=== PATIENT | male | born 1955 | race African-American/Black ===

== ENCOUNTER 2020-12-14 09:50 | Inpatient (IN) | payer MEDICARE, MEDICAID ==
[~2020-12-14] VITALS: Ht 165.1 cm; Wt 73.9 kg
[2020-12-14] MEDS ORDERED: ALBUTEROL (0.083%) 2.5MG/3ML NEB HHN STA (10:14)
[2020-12-14] MEDS ORDERED: SODIUM CHLORIDE 0.9% 1,000 ML IV ONE (10:15)
[2020-12-14] MEDS ORDERED: DEXAMETHASONE 4MG/ML 1ML VIAL IV ONE (10:15)
[2020-12-14 10:49] LABS: CHLORIDE 107 mEq/L (98-107)
[2020-12-14 11:12] LABS: BASOPHILS % 0.5 % (0.0-2.0); HEMATOCRIT. 38.7 % (42.0-52.0); HEMOGLOBIN. 12.4 g/dL (14.0-18.0); LYMPHOCYTES % 19.7 % (20.0-50.0); MEAN CORPUSCULAR HEMOGLOBIN 30.6 pg (28.0-32.0); MEAN CORPUSCULAR VOLUME 95.6 fL (80.0-94.0); MONOCYTES % 9.5 % (2.0-8.0); NEUTROPHILS % 68.3 % (40.0-76.0); PLATELET 358 x1000/uL (130-400); RED BLOOD CELL COUNT 4.05 mill/uL (4.7-6.1); RED CELL DISTRIBUTION WIDTH 17.1 % (11.6-14.6)
[2020-12-14] MEDS ORDERED: ALBUTEROL (0.083%) 2.5MG/3ML NEB HHN ONE (12:45)
[2020-12-14 17:00] VITALS: BP 148/65
[2020-12-14] MEDS ORDERED: ACETAMINOPHEN 650MG/20.3ML UDC GT PRN ×2 (17:15)
[2020-12-14] MEDS ORDERED: NA PHOS,M-B/NA PHOS,DI-BA ENEMA 118ML PR PRN (17:15)
[2020-12-14] MEDS ORDERED: MAGNESIUM/ALUMINUM HYDROXIDE/SIMETHICONE 30ML UDC PO PRN (17:15)
[2020-12-14] MEDS ORDERED: ACETAMINOPHEN 650MG SUPP PR PRN ×2 (17:15)
[2020-12-14] MEDS ORDERED: ACETAMINOPHEN 325MG TABLET PO PRN ×2 (17:15)
[2020-12-14] MEDS ORDERED: ONDANSETRON HCL 4MG/2ML INJ IV PRN (17:15)
[2020-12-14] MEDS ORDERED: CLONIDINE 0.1MG TABLET PO PRN (17:15)
[2020-12-14] MEDS ORDERED: DEXTROSE 50% WATER 50ML SYRINGE IV PRN (17:30)
[2020-12-14] MEDS: BLOOD SUGAR DIAGNOSTIC STRIP TEST SCH ×2 (17:40→21:00)
[2020-12-14] MEDS: INSULIN LISPRO 100 UNITS/ML SUBCUT SCH ×2 (18:57→21:00)
[2020-12-14 20:00] VITALS: BP 133/75
[2020-12-14] MEDS: SODIUM CHLORIDE 0.45% 1,000 ML IV SCH (20:07)
[2020-12-14] MEDS: FAMOTIDINE 20MG/2ML VIAL IV SCH (20:10)
[2020-12-14] MEDS ORDERED: PROC5TAB55 PO (21:35)
[2020-12-14] MEDS ORDERED: FAMO40TA7 PO (21:35)
[2020-12-14] MEDS ORDERED: ATOR40TA70 PO (21:35)
[2020-12-14] MEDS ORDERED: P50 PO (21:35)
[2020-12-14] MEDS ORDERED: AMLO10TA80 PO (21:35)
[2020-12-15 00:05] VITALS: BP 109/59
[2020-12-15 04:00] VITALS: BP 141/63
[2020-12-15] MEDS: BLOOD SUGAR DIAGNOSTIC STRIP TEST SCH ×2 (05:46→12:40)
[2020-12-15] MEDS: SODIUM CHLORIDE 0.45% 1,000 ML IV SCH (05:46)
[2020-12-15 07:59] LABS: HEMOGLOBIN. 12.9 g/dL (14.0-18.0); MEAN CORPUSCULAR HEMOGLOBIN 30.8 pg (28.0-32.0); MEAN CORPUSCULAR VOLUME 95.7 fL (80.0-94.0); RED BLOOD CELL COUNT 4.19 mill/uL (4.7-6.1)
[2020-12-15 08:00] VITALS: BP 146/77
[2020-12-15] MEDS: INSULIN LISPRO 100 UNITS/ML SUBCUT SCH ×2 (08:10→13:10)
[2020-12-15 08:12] LABS: CHLORIDE 107 mEq/L (98-107)
[2020-12-15 08:24] LABS: LDL CHOLESTEROL 86 mg/dL (5-100)
[2020-12-15 08:25] LABS: HDL CHOLESTEROL 62 mg/dL (40-59)
[2020-12-15 09:32] LABS: MEAN PLATELET VOLUME 7.3 fl (7.4-10.4); PLATELET 352 x1000/uL (130-400); PLATELET ESTIMATE NORMAL
[2020-12-15] MEDS: FAMOTIDINE 20MG/2ML VIAL IV SCH (09:40)
[2020-12-15 12:00] VITALS: BP 146/77
[2020-12-15] MEDS ORDERED: INS NPH/REG HM 70-30 100 UNITS/ML 10ML VIAL (HUMULIN 70-30) SUBCUT SCH (18:30)
== END 2020-12-15 12:20 | disposition home or self-care (01) | DRG 811 ==
LOC: ER 10:29 → 7WST 11:42 → ENRESERV 13:34 → CANRESERV 13:34
PROVIDERS: ADMIT Family Medicine; ATTEND Family Medicine
DX: T88.6XXA Anaphylactic reaction due to adverse effect of correct drug or medicament properly administered, initial encounter (principal); E11.9 Type 2 diabetes mellitus without complications; I10 Essential (primary) hypertension; T50.8X5A Adverse effect of diagnostic agents, initial encounter; T50.905A Adverse effect of unspecified drugs, medicaments and biological substances, initial encounter; Z20.822 Contact with and (suspected) exposure to COVID-19; Y83.8 Other surgical procedures as the cause of abnormal reaction of the patient, or of later complication, without mention of misadventure at the time of the procedure; Y82.8 Other medical devices associated with adverse incidents; Z79.4 Long term (current) use of insulin; Z85.038 Personal history of other malignant neoplasm of large intestine; Z85.118 Personal history of other malignant neoplasm of bronchus and lung; Z85.841 Personal history of malignant neoplasm of brain; Y92.89 Other specified places as the place of occurrence of the external cause; Z79.899 Other long term (current) drug therapy
CPT/HCPCS: 36415; 71045; 80053; 80061; 82962; 83036; 85025; 93005; 94640; 99291; J1100; J1815; J3490; J7030; U0003